=== PATIENT | female | born 1985 | race Caucasian/White ===

== ENCOUNTER → 2016-05-10 | Outpatient (CLI) | payer BC ==
[2014-03-01 11:00] VITALS: BP 111/55
--- NOTE | 2016-05-10 13:38 | RAD ---
EXAM: Left breast sonogram. HISTORY: Left breast pain and palpable lump 6 months status post breast-feeding. TECHNIQUE: Sonographic imaging of the left breast including all 4 quadrants and the retroareolar region was performed. COMPARISON: None. FINDINGS: There is no abnormality within the site of palpable concern at the 3:00 to 6:00 position or elsewhere throughout the left breast. Specifically, there is no evidence of mastitis or a solid or cystic lesion. There is no axillary lymphadenopathy. IMPRESSION: 1. Unremarkable left breast sonogram. Continued clinical follow-up of palpable abnormalities is recommended. A negative imaging report should not preclude the decision to biopsy a palpable abnormality if there is continuing clinical concern. 2. BI-RADS Category 2: Benign finding(s). Bilateral mammography beginning at age 40, or earlier if deemed indicated based on clinical history, is recommended according to ACR guidelines.
== END | disposition home or self-care (01) ==
LOC: KCIC US 09:12
PROVIDERS: ATTEND Obstetrics & Gynecology
DX: N63 Unspecified lump in breast (principal)
CPT/HCPCS: 76641